=== PATIENT | male | born 1995 | race African-American/Black ===

== ENCOUNTER 2016-10-29 16:00 | Emergency (ER) | payer BC ==
[~2016-10-29] VITALS: Ht 188 cm; Wt 92.3 kg
[2016-10-29 16:04] VITALS: TEMP 37.5; Ht 188 cm; Wt 92.3 kg
[2016-10-29] MEDS ORDERED: ONDANSETRON INJ 2 MG/ML 2 ML VIAL IV STA (16:38)
[2016-10-29] MEDS ORDERED: KETOROLAC TROMETHAMINE 30 MG/ML VIAL IV STA (16:38)
[2016-10-29] MEDS ORDERED: SODIUM CHLORIDE 0.9% 1000ML 1,000 ML IV STA (16:38)
--- NOTE | 2016-10-29 16:39 | EMERGENCY ROOM VISIT NOTE ---
History Report prepared by Radha: Shayy Chung Under the Supervision of: Dr. Victorino Greer M.D. First contact with patient: 16:30 Chief Complaint: ABDOMINAL PAIN Stated Complaint: ABDOMEN PAIN, VOMITED BLOOD, LEG NUMBNESS Nursing Triage Summary: pt reports at 0630 this am started vomiting had diarhea. drank a little water kept vomiting then this afternoon vomited blood at approx 1500. thought he should come get checked out. c/o left abd pain History of Present Illness The patient is a 21 year old male who presents to the Emergency Room with complaints of constant abdominal pain beginning 10 hours ago. The patient states that he woke up this morning and did not feel good. He reports that shortly after he woke up, he vomited and began to have diarrhea. He notes that he was trying to drink water and one hour ago he vomited and there was a small amount of blood in it. He denies eating any unordinary or bad food. The patient reports that he still has his gallbladder and appendix. Source of History: patient Onset: 10 hours ago Position: abdomen Quality: other (blood in vomit) Timing: constant Associated Symptoms: + diarrhea, + vomiting Note: Denies eating any bad or unordinary food. Review of Systems See HPI for pertinent positives & negatives. A total of 10 systems reviewed and were otherwise negative. Past Medical & Surgical Medical Problems: (1) Asthma Family History Patient reports no known family medical history. Social History Smoking Status: Never Smoker Marital Status: in relationship Housing Status: lives with significant other Occupation Status: employed, student Current/Historical Medications Scheduled Ondasetron Odt (Zofran Odt), 4 MG SL Q6H Allergies Coded Allergies: No Known Allergies (Unverified , 10/29/16) Physical Exam Vital Signs Date Time Temp Pulse Resp B/P Pulse Ox O2 Delivery O2 Flow Rate FiO2 10/29/16 18:12 89 18 125/68 100 10/29/16 16:04 37.5 122 18 122/70 99 Room Air Physical Exam GENERAL: Patient is a healthy-appearing well-nourished HEAD: Normocephalic atraumatic EYES: Ocular movements intact pupils equal and react to light OROPHARYNX mucous membranes are moist no exudates present no erythema or edema present NECK: Supple no nuchal rigidity CHEST: Good equal expansion LUNGS: Clear and equal to auscultation CARDIAC: Normal S1 and S2 ABDOMEN: Soft nontender no guarding BACK: No CVA tenderness EXTREMITIES: No pain upon palpation normal muscle strength in all groups no clubbing cyanosis or edema NEURO: Patient is following commands is answering questions appropriately. Alert and oriented x3 Cranial Nerves 2-12 grossly intact Medical Decision & Procedures ER Provider Diagnostic Interpretation: X-ray results as stated below per interpretation by me and the radiologist: ABDOMEN 2VIEW W/PA CHEST RTN FINDINGS: The erect chest reveals no evidence of free air. There is no evidence of focal pulmonary consolidation.] Erect and supine views of the abdomen reveal no abnormally dilated loops of large or small bowel. There are no transition zone to indicate bowel obstruction. Left pelvic basin calcifications, likely represent phleboliths. IMPRESSION: No evidence of bowel obstruction. No evidence of free air. Electronically signed by: Brain Junior M.D. 10/29/2016 5:22 PM Dictated Date/Time: 10/29/2016 5:21 PM Laboratory Results 10/29/16 16:45 Red Blood Count 4.66, Mean Corpuscular Volume 86.7, Mean Corpuscular Hemoglobin 32.4, Mean Corpuscular Hemoglobin Concent 37.4, Mean Platelet Volume 8.8, Neutrophils (%) (Auto) 90.6, Lymphocytes (%) (Auto) 5.3, Monocytes (%) (Auto) 3.4, Eosinophils (%) (Auto) 0.3, Basophils (%) (Auto) 0.2, Neutrophils # (Auto) 5.52, Lymphocytes # (Auto) 0.32, Monocytes # (Auto) 0.21, Eosinophils # (Auto) 0.02, Basophils # (Auto) 0.01 10/29/16 16:45 Test 10/29/16 16:45 10/29/16 17:30 White Blood Count 6.09 K/uL (4.8-10.8) Red Blood Count 4.66 M/uL (4.7-6.1) Hemoglobin 15.1 g/dL (14.0-18.0) Hematocrit 40.4 % (42-52) Mean Corpuscular Volume 86.7 fL (80-100) Mean Corpuscular Hemoglobin 32.4 pg (25-34) Mean Corpuscular Hemoglobin Concent 37.4 g/dl (32-36) Platelet Count 157 K/uL (130-400) Mean Platelet Volume 8.8 fL (7.4-10.4) Neutrophils (%) (Auto) 90.6 % Lymphocytes (%) (Auto) 5.3 % Monocytes (%) (Auto) 3.4 % Eosinophils (%) (Auto) 0.3 % Basophils (%) (Auto) 0.2 % Neutrophils # (Auto) 5.52 K/uL (1.4-6.5) Lymphocytes # (Auto) 0.32 K/uL (1.2-3.4) Monocytes # (Auto) 0.21 K/uL (0.11-0.59) Eosinophils # (Auto) 0.02 K/uL (0-0.5) Basophils # (Auto) 0.01 K/uL (0-0.2) RDW Standard Deviation 37.3 fL (36.4-46.3) RDW Coefficient of Variation 11.9 % (11.5-14.5) Immature Granulocyte % (Auto) 0.2 % Immature Granulocyte # (Auto) 0.01 K/uL (0.00-0.02) Anion Gap 8.0 mmol/L (3-11) Est Creatinine Clear Calc Drug Dose 123.6 ml/min Estimated GFR () 110.6 Estimated GFR (Non- 95.5 BUN/Creatinine Ratio 14.6 (10-20) Calcium Level 9.4 mg/dl (8.5-10.1) Total Bilirubin 1.3 mg/dl (0.2-1) Direct Bilirubin 0.2 mg/dl (0-0.2) Aspartate Amino Transf (AST/SGOT) 37 U/L (15-37) Alanine Aminotransferase (ALT/SGPT) 83 U/L (12-78) Alkaline Phosphatase 72 U/L (45-117) Total Protein 8.5 gm/dl (6.4-8.2) Albumin 4.6 gm/dl (3.4-5.0) Lipase 110 U/L (73-393) Urine Color YELLOW Urine Appearance CLEAR (CLEAR) Urine pH 6.5 (4.5-7.5) Urine Specific [place] 1.029 (1.000-1.030) Urine Protein NEG (NEG) Urine Glucose (UA) TRACE (NEG) Urine Ketones NEG (NEG) Urine Occult Blood TRACE (NEG) Urine Nitrite NEG (NEG) Urine Bilirubin NEG (NEG) Urine Urobilinogen NEG (NEG) Urine Leukocyte Esterase NEG (NEG) Urine WBC (Auto) 1-5 /hpf (0-5) Urine RBC (Auto) 5-10 /hpf (0-4) Urine Hyaline Casts (Auto) 1-5 /lpf (0-5) Urine Epithelial Cells (Auto) 10-20 /lpf (0-5) Urine Bacteria (Auto) NEG (NEG) Labs reviewed by ED physician. Medications Administered Medications (Trade) Dose Ordered Sig/Daphne Route Start Time Stop Time Status Last Admin Dose Admin Sodium Chloride (Nss 1000ml) 1,000 ml @ 999 mls/hr Q1H1M STAT IV 10/29/16 16:38 10/29/16 17:38 DC 10/29/16 16:44 999 MLS/HR Ketorolac Tromethamine (Toradol Inj) 30 mg NOW STAT IV 10/29/16 16:38 10/29/16 16:40 DC 10/29/16 16:44 30 MG Ondansetron HCl (Zofran Inj) 4 mg NOW STAT IV 10/29/16 16:38 10/29/16 16:40 DC 10/29/16 16:44 4 MG Ondansetron HCl (ZOFRAN ODT 4MG Home Pack) 1 homepack UD ONCE PO 10/29/16 17:45 10/29/16 17:46 DC 10/29/16 18:08 1 HOMEPACK ED Course 1630: Past medical records reviewed. The patient was evaluated in room A4B. A complete history and physical examination was performed. 1638: Zofran Inj 4mg IV, Toradol Inj 30mg IVB, Sodium Chloride 1000 ml @ 999 mls /hr iV. 1745: Ondansetron HCl 1 homepack PO. 1755: Upon reexamination the patient is hemodynamically stable. I discussed results and treatment plan with the patient. He verbalizes agreement and understanding. The patient is ready for discharge. Medical Decision Differential diagnosis: Etiologies such as appendicitis, diverticulitis, PUD, biliary pathology, UTI, pancreatitis, obstruction, mesenteric ischemia, aortic pathology, infections, inflammatory bowel disease, renal colic, as well as others were entertained. This is a 21-year-old male who presents emergency department complaining of vomiting. The patient has a very benign abdominal examination. Serial abdominal examinations were performed on the patient in the emergency department and no tended patient exhibit abdominal tenderness or surgical abdomen. An IV was established, patient given normal saline bolus, Toradol, Zofran. Repeat examination revealed much improvement patient's symptoms. The patient does not have an elevation in his white blood count he has a normal hemoglobin he has a normal renal profile is normal liver profile he has a normal lipase. During the time the patient was in the emergency department he was unable to provide a stool sample. I do believe that the patient is well enough to be discharged home for follow-up with his primary care physician. He was given Zofran in the emergency department. I recommended that the patient to a clear liquid diet for the next 48 hours. Patient was in a agreement with the treatment plan. Impression Primary Impression: Gastroenteritis Scribe Attestation The scribe's documentation has been prepared under my direction and personally reviewed by me in its entirety. I confirm that the note above accurately reflects all work, treatment, procedures, and medical decision making performed by me. Departure Information Dispostion Home / Self-Care Prescriptions Ondasetron Odt (ZOFRAN ODT) 4 Mg Tab 4 MG SL Q6H for Nausea, #6 TAB Prov: Victorino Greer MD 10/29/16 Referrals No Doctor, Assigned (PCP) Forms HOME CARE DOCUMENTATION FORM, IMPORTANT VISIT INFORMATION Patient Instructions ED Diet Vomiting Diarrhea, ED Gastroenteritis Report Pend, My [facility] Additional Instructions Culture results are usually available in approx 48 hours You have been examined and treated today on an emergency basis only. This is not a substitute for, or an effort to provide, complete comprehensive medical care. It is impossible to recognize and treat all injuries or illnesses in a single emergency department visit. It is therefore important that you follow up closely with your PCP. Call as soon as possible for an appointment. Thank you for your time and consideration. I look forward to speaking with you again soon. Please don't hesitate to call us if you have any questions.
[2016-10-29 16:58] LABS: BASO % 0.2 %; BASO ABS # 0.01 K/uL (0-0.2); COMPLETE YES; EOS % 0.3 %; HEMATOCRIT 40.4 % (42-52); IG% 0.2 %; LYMPH % 5.3 %; LYMPH ABS # 0.32 K/uL (1.2-3.4); MEAN CELL VOLUME 86.7 fL (80-100); MEAN CORPUSCULAR HEMOGLOBIN 32.4 pg (25-34); MEAN CORPUSCULAR HGB CONC 37.4 g/dl (32-36); MEAN PLATELET VOLUME 8.8 fL (7.4-10.4); MONO % 3.4 %; NEUT % 90.6 %; PLATELET COUNT 157 K/uL (130-400); RED BLOOD COUNT 4.66 M/uL (4.7-6.1); WHITE BLOOD COUNT 6.09 K/uL (4.8-10.8)
[2016-10-29 17:15] LABS: BUN/CREATININE RATIO 14.6 (10-20); CALCIUM 9.4 mg/dl (8.5-10.1); CREATININE 1.1 mg/dl (0.60-1.40); POTASSIUM 3.9 mmol/L (3.5-5.1)
--- NOTE | 2016-10-29 17:23 | DIAGNOSTIC IMAGING REPORT ---
ABDOMEN 2VIEW W/PA CHEST RTN CLINICAL HISTORY: Epigastric pain COMPARISON STUDY: No previous studies for comparison. FINDINGS: The erect chest reveals no evidence of free air. There is no evidence of focal pulmonary consolidation.] Erect and supine views of the abdomen reveal no abnormally dilated loops of large or small bowel. There are no transition zone to indicate bowel obstruction. Left pelvic basin calcifications, likely represent phleboliths. IMPRESSION: No evidence of bowel obstruction. No evidence of free air. Electronically signed by: Brain Junior M.D. 10/29/2016 5:22 PM Dictated Date/Time: 10/29/2016 5:21 PM
[2016-10-29] MEDS ORDERED: ONDA4TAB10 SL (17:32)
[2016-10-29] MEDS ORDERED: ONDANSETRON HOME PACK 4MG OD TAB PO ONE (17:45)
[2016-10-29 17:49] LABS: URINE APPEARANCE CLEAR (CLEAR); URINE BILIRUBIN NEG (NEG); URINE COLOR YELLOW; URINE NITRITE NEG (NEG); URINE PH 6.5 (4.5-7.5); URINE SPECIFIC GRAVITY 1.029 (1.000-1.030); UROBILINOGEN NEG (NEG)
[2016-10-29 17:55] LABS: MANUAL MICROSCOPIC REQUIRED? NO; REVIEW REQ? NO
[2016-10-29 18:12] VITALS: BP 125/68; PULSE 89; O2SAT 100
[2017-03-02] MEDS ORDERED: BIOT1CAP8 PO (11:22)
== END 2016-10-29 18:13 | disposition home or self-care (01) ==
LOC: C.EDB 16:02 → C.EDA 18:13
DX: K52.9 Noninfective gastroenteritis and colitis, unspecified (principal); J45.909 Unspecified asthma, uncomplicated

== ENCOUNTER → 2017-03-10 | Outpatient (CLI) | payer BC ==
[~2017-03-10] MED LIST: BIOT1CAP8 PO
[2017-03-10 14:45] LABS: BASO % 0.7 %; BASO ABS # 0.02 K/uL (0-0.2); COMPLETE YES; EOS % 7.6 %; HEMATOCRIT 37.4 % (42-52); LYMPH % 46.9 %; LYMPH ABS # 1.42 K/uL (1.2-3.4); MEAN CELL VOLUME 88.2 fL (80-100); MEAN CORPUSCULAR HGB CONC 37.4 g/dl (32-36); MEAN PLATELET VOLUME 9.3 fL (7.4-10.4); MONO % 7.9 %; NEUT % 36.9 %; PLATELET COUNT 155 K/uL (130-400); RED BLOOD COUNT 4.24 M/uL (4.7-6.1); WHITE BLOOD COUNT 3.03 K/uL (4.8-10.8)
[2017-03-10 14:58] LABS: PARTIAL THROMBOPLASTIN RATIO 1.1; PROTHROMBIN TIME (PATIENT) 11.2 SECONDS (9.0-12.0)
[2017-03-10 15:13] LABS: POTASSIUM 3.7 mmol/L (3.5-5.1)
== END | disposition home or self-care (01) ==
LOC: C.LAB 13:02
DX: Z01.818 Encounter for other preprocedural examination (principal)

== ENCOUNTER → 2017-03-11 | Day surgery (SDC) | payer BC ==
[2017-03-02 11:23] VITALS: Ht 188 cm; Wt 90.9 kg
[~2017-03-11] VITALS: Ht 188 cm; Wt 90.9 kg
[~2017-03-11] MED LIST changes: +ATROPINE SULFATE 0.1 MG/ML 5ML SYR IV PRN; +CEFAZOLIN 2000 MG/60 ML D5W IV SCH; +DEXAMETHASONE SOD INJ 4 MG/ML VIAL IV PRN; +DEXAMETHASONE SOD INJ 4 MG/ML VIAL ONE; +EpHEDrine SULFATE INJ 50 MG/ML AMP IV PRN; +EpINEphrine INJ 1MG/ML AMP 1 MG/ML AMP ONE; +FENTANYL CITRATE INJ 50 MCG/1 ML 2 ML VIAL IV PRN; +FENTANYL CITRATE INJ 50 MCG/1 ML 2 ML VIAL ONE; +GLYCOPYRROLATE INJ 0.2 MG/ML VIAL ONE; +HYDROCODONE/ACETAMOPHEN 5/325MG TAB PO PRN; +KETOROLAC TROMETHAMINE 30 MG/ML VIAL IV. PRN; +LABETALOL HCL IV 5 MG/ML 20ML IV PRN; +LACTATED RINGER'S 1000ML 1,000 ML IV SCH; +LIDOCAINE 4% MPF SOAK 5 ML = 1 DOSE TOP ONE; +LIDOCAINE HCL 2% 2 ML VIAL (20MG/ML) ONE; +LIDOCAINE/EPINEPHRINE 1% INJ 50 ML VIAL ONE; +METOCLOPRAMIDE HCL INJ 5 MG/ML 2 ML VIAL IV PRN; +MIDAZOLAM HCL 1 MG/ML 2ML VIAL ONE; +MoRPHine SULFATE 10 MG/ML CARP/VIAL IV PRN; +NEOSTIGMINE METHYLSULFATE 5 MG/5 ML SYR ONE; +ONDANSETRON INJ 2 MG/ML 2 ML VIAL IV PRN; +ONDANSETRON INJ 2 MG/ML 2 ML VIAL ONE; +OXYMETAZOLINE HCL 0.05% NA SPR 15 ML BTL PRN; +OXYMETAZOLINE HCL 0.05% NA SPR 15 ML BTL SCH; +PHENYLEPHRINE 100MCG/ML 5ML SYR IV PRN; +PROPOFOL IV EMULSION 10 MG/ML 20 ML VIAL IV ONE
--- NOTE | 2017-03-11 09:38 | History & Physical Bridge - SC ---
H&P Re-Evaluation Bridge Note: I have examined the patient, reviewed the History & Physical and in the interval since the performance of the History & Physical I have noted the following changes of clinical significance: No changes noted
--- NOTE | 2017-03-11 10:33 | [facility] Operative Report ---
Operative Report Operative Date Mar 11, 2017. Pre-Operative Diagnosis Deviated Nasal Septum, Hypertrophy of Nasal Turbinates Post-Operative Diagnosis Same Procedure(s) Performed Septoplasty, Bilateral Inferior Turbinate Reduction Surgeon Dr. Farah Senior Quality Analyst Surgeon(s) None Estimated Blood Loss 15ML Findings 1. R>L DNS 2. SEVERE B ITH Specimens None I attest to the content of the Intraoperative Record and any orders documented therein. Any exceptions are noted below.
--- NOTE | 2017-03-11 10:35 | Discharge Instructions ---
Discharge Instructions Date of Service Mar 11, 2017. Admission Reason for Admission: Deviated Septum, Hypertrophy Both Inferior Nasal Discharge Discharge Diagnosis / Problem: SAME Discharge Goals Goal(s): Therapeutic intervention Activity Recommendations Activity Limitations: as noted below 1. LIGHT ACTIVITY AND NO NOSE BLOWING FOR 2 WEEKS 2. NO DRIVING WHILE ON [place] . Current Hospital Diet Patient's current hospital diet: Discharge Diet Recommended Diet: Regular Diet Procedures Procedures Performed: Septoplasty, Bilateral Inferior Turbinate Reduction Pending Studies Studies pending at discharge: no Medical Emergencies . Who to Call and When: Medical Emergencies: If at any time you feel your situation is an emergency, please call 911 immediately. . Non-Emergent Contact Non-Emergency issues call your: Surgeon . . "Provider Documentation" section prepared by Kiel Farah. . VTE Core Measure Inpt VTE Proph given/why not?: SCD's
[2017-03-11 11:20] VITALS: BP 128/73; PULSE 72; TEMP 36.6; O2SAT 97
--- NOTE | 2017-03-11 11:23 | OPERATIVE REPORT ---
DATE OF OPERATION: 03/11/2017 PREOPERATIVE DIAGNOSES: 1. Right greater than left nasal septal deviation. 2. Severe bilateral inferior turbinate hypertrophy. POSTOPERATIVE DIAGNOSES: 1. Right greater than left nasal septal deviation. 2. Severe bilateral inferior turbinate hypertrophy. PROCEDURES: 1. Septoplasty. 2. Bilateral inferior turbinate outfracture and turbinoplasty. SURGEON: Dr. Farah. ANESTHESIA: General endotracheal. ESTIMATED BLOOD LOSS: 15 mL. FINDINGS: 1. Mild to moderate right greater than left septal deviation. 2. Severe bilateral inferior turbinate hypertrophy. SPECIMENS: None. COMPLICATIONS: None. INDICATIONS FOR THE PROCEDURE: The patient is a 21-year-old male with complaints of nasal airway obstruction and decreased ability to smell, although blind smell testing in the office was completely normal. He was found on physical examination to have a right septal deviation and severe bilateral inferior turbinate hypertrophy. He presents for the above-mentioned procedures on an outpatient elective basis. DETAILS OF PROCEDURE: After informed consent obtained from the patient, the patient was wheeled to the operating room and placed on the operating table in the supine position. Monitors were placed. After induction of general endotracheal anesthesia, the patient was prepped in the usual fashion for septoplasty. 1% lidocaine with 1:100,000 epinephrine was used to inject the nasal septum bilaterally, thereby performing hydrodissection of the mucoperichondrial mucoperiosteal flaps. Lidocaine and epinephrine pledgets were then placed in the bilateral nasal cavities and pressure applied. The pledgets were removed. A #15 scalpel was used to make a left Steven incision through which the left-sided mucoperichondrial and mucoperiosteal flap was elevated. A #15 scalpel was then used to incise the quadrangular cartilage with care to preserve a 1.5 cm dorsal and caudal strut and the right-sided mucoperichondrial mucoperiosteal flap was elevated through this cartilaginous incision. A Oneil swivel knife was then used to remove the deviated portions of quadrangular cartilage. Estela forceps were used to remove septal bone posteriorly. The septal cavity was then suctioned. The septum was found to be midline. The left [place] incision was closed with several simple interrupted 4-0 chromic sutures. A 4-0 plain gut suture on a Woo needle was then used to perform a quilting stitch of the mucoperichondrial mucoperiosteal flaps bilaterally to help prevent septal hematoma. A Jeffery elevator was then used to infracture and subsequently outfracture the inferior turbinates bilaterally. The inferior turbinates were injected with 1% lidocaine with 1:100,000 epinephrine. A 2.0 mm turbinate blade using powered instrumentation was then used to perform bilateral inferior turbinoplasties in a submucosal fashion. An orogastric tube was placed and the stomach was suctioned free of air and stomach contents. This marked the end of the case. The patient tolerated the procedure well. There were no apparent complications. The patient was extubated and transferred to recovery room in stable condition. I attest to the content of the Intraoperative Record and any orders documented therein. Any exception s are noted below.
--- NOTE | 2017-03-11 11:53 | Anesthesia Progress Nt - [facility] ---
Anesthesia Post Op Note Date & Time Mar 11, 2017 at 11:52 Vital Signs Pain Intensity: 0 Vital Signs Past 12 Hours Date Time Temp Pulse Resp B/P (MAP) Pulse Ox O2 Delivery O2 Flow Rate FiO2 03/11/17 11:20 36.6 72 16 128/73 (91) 97 Room Air 03/11/17 11:15 36.8 73 16 131/80 99 Room Air 03/11/17 11:11 127/86 03/11/17 11:07 74 14 03/11/17 11:07 74 14 99 03/11/17 11:06 122/82 03/11/17 11:02 68 17 03/11/17 11:02 68 17 100 03/11/17 11:01 136/72 03/11/17 10:57 84 14 100 03/11/17 10:57 83 14 03/11/17 10:56 135/78 03/11/17 10:53 74 19 03/11/17 10:53 74 19 100 03/11/17 10:51 137/72 03/11/17 10:48 74 16 100 03/11/17 10:48 75 16 03/11/17 10:46 140/71 03/11/17 10:44 36.6 100 20 155/85 99 Humidified Air Mask 03/11/17 10:43 155/85 03/11/17 08:08 36.5 67 18 113/81 (92) 100 Room Air Notes Mental Status: alert / awake / arousable, participated in evaluation Pt Amnestic to Procedure: Yes Nausea / Vomiting: adequately controlled Pain: adequately controlled Airway Patency, RR, SpO2: stable & adequate BP & HR: stable & adequate Hydration State: stable & adequate Anesthetic Complications: no major complications apparent
== END | disposition home or self-care (01) ==
LOC: X.SURG 07:43
DX: J34.2 Deviated nasal septum (principal); J34.3 Hypertrophy of nasal turbinates; J45.909 Unspecified asthma, uncomplicated

== ENCOUNTER → 2017-03-31 | Outpatient (CLI) | payer BC ==
[~2017-03-31] MED LIST changes: -ATROPINE SULFATE 0.1 MG/ML 5ML SYR IV PRN; -CEFAZOLIN 2000 MG/60 ML D5W IV SCH; -DEXAMETHASONE SOD INJ 4 MG/ML VIAL IV PRN; -DEXAMETHASONE SOD INJ 4 MG/ML VIAL ONE; -EpHEDrine SULFATE INJ 50 MG/ML AMP IV PRN; -EpINEphrine INJ 1MG/ML AMP 1 MG/ML AMP ONE; -FENTANYL CITRATE INJ 50 MCG/1 ML 2 ML VIAL IV PRN; -FENTANYL CITRATE INJ 50 MCG/1 ML 2 ML VIAL ONE; -GLYCOPYRROLATE INJ 0.2 MG/ML VIAL ONE; -HYDROCODONE/ACETAMOPHEN 5/325MG TAB PO PRN; -KETOROLAC TROMETHAMINE 30 MG/ML VIAL IV. PRN; -LABETALOL HCL IV 5 MG/ML 20ML IV PRN; -LACTATED RINGER'S 1000ML 1,000 ML IV SCH; -LIDOCAINE 4% MPF SOAK 5 ML = 1 DOSE TOP ONE; -LIDOCAINE HCL 2% 2 ML VIAL (20MG/ML) ONE; -LIDOCAINE/EPINEPHRINE 1% INJ 50 ML VIAL ONE; -METOCLOPRAMIDE HCL INJ 5 MG/ML 2 ML VIAL IV PRN; -MIDAZOLAM HCL 1 MG/ML 2ML VIAL ONE; -MoRPHine SULFATE 10 MG/ML CARP/VIAL IV PRN; -NEOSTIGMINE METHYLSULFATE 5 MG/5 ML SYR ONE; -ONDANSETRON INJ 2 MG/ML 2 ML VIAL IV PRN; -ONDANSETRON INJ 2 MG/ML 2 ML VIAL ONE; -OXYMETAZOLINE HCL 0.05% NA SPR 15 ML BTL PRN; -OXYMETAZOLINE HCL 0.05% NA SPR 15 ML BTL SCH; -PHENYLEPHRINE 100MCG/ML 5ML SYR IV PRN; -PROPOFOL IV EMULSION 10 MG/ML 20 ML VIAL IV ONE
--- NOTE | 2017-03-31 11:48 | DIAGNOSTIC IMAGING REPORT ---
MRI LEFT KNEE NO CONTRAST CLINICAL HISTORY: Persistent left knee pain. Possible meniscal tear COMPARISON STUDY: Outside conventional radiograph dated 03/25/2017 FINDINGS: Imaging was performed in the axial sagittal and coronal planes. The retinacular structures appear intact. There are no areas of marrow edema to indicate occult fracture or bone bruise. The quadriceps and patellar tendons appear intact. The anterior and posterior cruciate ligaments appear intact. The medial and lateral collateral ligaments appear intact. There are few tiny popliteal cysts. There is no evidence of pathologic joint effusion. Degenerative signal changes are present within the posterior horn the medial meniscus. No tear is visualized. IMPRESSION: 1. No evidence of occult fracture or bone bruise 2. No evidence of cruciate or collateral ligament disruption 3. Degenerative changes within the medial meniscus. No tears are delineated Electronically signed by: Brain Junior M.D. 03/31/2017 11:47 AM Dictated Date/Time: 03/31/2017 11:43 AM
== END | disposition home or self-care (01) ==
LOC: C.MRIBC 10:03
PROVIDERS: ATTEND Orthopaedic Surgery
DX: M25.562 Pain in left knee (principal)